=== PATIENT | female | born 1955 | race Hispanic/Latino ===

== ENCOUNTER → 2022-10-30 | Day surgery (SDC) | payer OTHER ==
[2022-10-25 12:05] LABS: BASOPHILS % 0.6 % (0.0-1.0); EOSINOPHILS # (AUTO) 0.1 (0.0-0.4); EOSINOPHILS % 1.7 % (0.0-6.0); HEMATOCRIT 39.5 % (34.2-44.1); HEMOGLOBIN 12.8 g/dL (12.0-16.0); LYMPHOCYTES # (AUTO) 1.2 (1.0-3.2); LYMPHOCYTES % 32.9 % (18.0-39.1); MEAN CORPUSCULAR HGB CONC 32.4 g/dL (31-35); MEAN CORPUSCULAR VOLUME 89.4 fL (81-99); MONOCYTES # (AUTO) 0.3 (0.2-0.8); MONOCYTES % 9.3 % (4.4-11.3); NEUTROPHILS % 55.2 % (38.7-80.0); PLATELET COUNT 100 x10e3/uL (140-360); RED BLOOD COUNT 4.42 x10e6/uL (3.6-5.1); RED CELL DISTRIBUTION WIDTH 19.4 % (11.7-14.4)
[2022-10-25 12:14] LABS: INR 1.11; PARTIAL THROMBOPLASTIN TIME 35.4 seconds (23.8-35.5); PROTHROMBIN TIME 14.8 seconds (11.9-14.5)
[2022-10-25 12:20] LABS: ALBUMIN 3.5 g/dL (3.5-5.0); ANION GAP 9.9 mmol/L (8-16); CALCIUM 9.1 mg/dL (8.4-10.2); CREATININE, SERUM 0.65 mg/dL (0.57-1.11); POTASSIUM 3.9 mmol/L (3.5-5.1)
[~2022-10-30] MED LIST: FAMOTIDINE20 MG PO; FENTANYL CITRATE/PF 100MCG/2 ML INJ ONE; FLOMAX0.4 MG PO; HYOSCYAMINE SULFATE 0.5 MG/ML INJ ONE; LACTATED RINGER'S 1,000 ML ONE; LIDOCAINE HCL 2% LOCAL INJ 5 ML SDV VIAL INJ ONE; MIDAZOLAM HCL 2 MG/2 ML VIAL ONE; PROPOFOL IV EMULSION 10 MG/ML 20 ML VIAL ONE; PROPRANOLOL HCL 10 MG TAB ONE
[2022-10-30 10:45] VITALS: BP 127/77; PULSE 62; RESP 18; O2SAT 96
== END | disposition home or self-care (01) ==
LOC: OR 07:24
PROVIDERS: ATTEND Internal Medicine Gastroenterology
DX: K74.60 Unspecified cirrhosis of liver (principal); D12.2 Benign neoplasm of ascending colon; I85.10 Secondary esophageal varices without bleeding; I86.4 Gastric varices; K76.6 Portal hypertension; K31.89 Other diseases of stomach and duodenum; K63.89 Other specified diseases of intestine; K57.30 Diverticulosis of large intestine without perforation or abscess without bleeding; K64.8 Other hemorrhoids; D64.9 Anemia, unspecified; Z01.810 Encounter for preprocedural cardiovascular examination; Z01.812 Encounter for preprocedural laboratory examination; Z79.899 Other long term (current) drug therapy; Z86.19 Personal history of other infectious and parasitic diseases
CPT/HCPCS: 36415; 43244; 45385; 80053; 85025; 85610; 85730; 87522; 93005; C9113; J1980; J2001; J2250; J2704; J3010; J7121; 43270; 45378

== ENCOUNTER → 2024-02-20 | Day surgery (SDC) | payer MEDICARE, OTHER ==
[2024-02-18 13:42] LABS: EOSINOPHILS # (AUTO) 0.1 (0.0-0.4); EOSINOPHILS % 2.9 % (0.0-6.0); HEMATOCRIT 41.6 % (34.2-44.1); HEMOGLOBIN 13.9 g/dL (12.0-16.0); LYMPHOCYTES # (AUTO) 1.1 (1.0-3.2); LYMPHOCYTES % 34.7 % (18.0-39.1); MEAN CORPUSCULAR HEMOGLOBIN 33.6 pg (28-32); MEAN CORPUSCULAR HGB CONC 33.4 g/dL (31-35); MEAN CORPUSCULAR VOLUME 100.5 fL (81-99); MONOCYTES # (AUTO) 0.4 (0.2-0.8); MONOCYTES % 12.1 % (4.4-11.3); NEUTROPHILS # (AUTO) 1.5 (2.1-6.9); PLATELET COUNT 104 x10e3/uL (140-360); RED BLOOD COUNT 4.14 x10e6/uL (3.6-5.1); RED CELL DISTRIBUTION WIDTH 13.3 % (11.7-14.4); WHITE BLOOD COUNT 3.14 x10e3/uL (4.8-10.8)
[2024-02-18 13:57] LABS: INR 1.06; PROTHROMBIN TIME 14.3 seconds (11.9-14.5)
[2024-02-18 13:58] LABS: PARTIAL THROMBOPLASTIN TIME 29.7 seconds (23.8-35.5)
[2024-02-18 14:04] LABS: ALBUMIN 3.5 g/dL (3.5-5.0); ANION GAP 10.5 mmol/L (8-16); CALCIUM 9.3 mg/dL (8.4-10.2); CREATININE, SERUM 0.7 mg/dL (0.57-1.11); POTASSIUM 4.5 mmol/L (3.5-5.1)
[~2024-02-20] MED LIST changes: -HYOSCYAMINE SULFATE 0.5 MG/ML INJ ONE; -LACTATED RINGER'S 1,000 ML ONE; -LIDOCAINE HCL 2% LOCAL INJ 5 ML SDV VIAL INJ ONE; -MIDAZOLAM HCL 2 MG/2 ML VIAL ONE; +PHYTONADIONE 10MG/ML INJ 20 MG in Sodium Chloride 0.9% 50ML 50 ML IV ONE; -PROPOFOL IV EMULSION 10 MG/ML 20 ML VIAL ONE; +PROPOFOL IV EMULSION 50 ML IV ONE; -PROPRANOLOL HCL 10 MG TAB ONE; +PROPRANOLOL HCL60 M1 PO
[2024-02-20] MEDS: LACTATED RINGER'S 1,000 ML ONE (06:26)
[2024-02-20 09:12] VITALS: TEMP 98
[2024-02-20] MEDS: PHYTONADIONE 10 MG/ML AMP IV ONE (09:22)
[2024-02-20 09:30] VITALS: BP 137/76; PULSE 60; RESP 16; O2SAT 99
== END | disposition home or self-care (01) ==
LOC: OR 06:28
PROVIDERS: ATTEND Internal Medicine Gastroenterology
DX: K74.60 Unspecified cirrhosis of liver (principal); I85.10 Secondary esophageal varices without bleeding; K26.7 Chronic duodenal ulcer without hemorrhage or perforation; K29.80 Duodenitis without bleeding; K44.9 Diaphragmatic hernia without obstruction or gangrene; K76.6 Portal hypertension; K31.89 Other diseases of stomach and duodenum; Z01.810 Encounter for preprocedural cardiovascular examination; Z01.812 Encounter for preprocedural laboratory examination; Z86.16 Personal history of COVID-19
CPT/HCPCS: 36415; 43239; 43244; 80053; 85025; 85610; 85730; 93005; J2470; J2704; J3010; J3430; J7121; 43255

== ENCOUNTER → 2024-05-30 | Day surgery (SDC) | payer MEDICARE ==
[2024-05-27 11:30] LABS: BASOPHILS % 1.2 % (0.0-1.0); EOSINOPHILS # (AUTO) 0.1 (0.0-0.4); EOSINOPHILS % 2.7 % (0.0-6.0); HEMATOCRIT 42.1 % (34.2-44.1); HEMOGLOBIN 14.4 g/dL (12.0-16.0); LYMPHOCYTES # (AUTO) 1.2 (1.0-3.2); LYMPHOCYTES % 34.1 % (18.0-39.1); MEAN CORPUSCULAR HEMOGLOBIN 34.1 pg (28-32); MEAN CORPUSCULAR HGB CONC 34.2 g/dL (31-35); MEAN CORPUSCULAR VOLUME 99.8 fL (81-99); MONOCYTES # (AUTO) 0.3 (0.2-0.8); MONOCYTES % 9.5 % (4.4-11.3); NEUTROPHILS # (AUTO) 1.8 (2.1-6.9); NEUTROPHILS % 52.2 % (38.7-80.0); PLATELET COUNT 114 x10e3/uL (140-360); RED BLOOD COUNT 4.22 x10e6/uL (3.6-5.1); RED CELL DISTRIBUTION WIDTH 13.8 % (11.7-14.4); WHITE BLOOD COUNT 3.37 x10e3/uL (4.8-10.8)
[~2024-05-30] MED LIST changes: +B-121000 MC2; -FENTANYL CITRATE/PF 100MCG/2 ML INJ ONE; +LIDOCAINE HCL 2% LOCAL INJ 5 ML SDV VIAL INJ ONE; +PANTOPRAZOLE SO40 MG PO; -PHYTONADIONE 10MG/ML INJ 20 MG in Sodium Chloride 0.9% 50ML 50 ML IV ONE; +PROPOFOL IV EMULSION 10 MG/ML 20 ML VIAL ONE; -PROPOFOL IV EMULSION 50 ML IV ONE
[2024-05-30] MEDS: LACTATED RINGER'S 1,000 ML ONE (06:54)
[2024-05-30 08:00] VITALS: TEMP 97.7
[2024-05-30 08:30] VITALS: BP 125/79; PULSE 47; RESP 16; O2SAT 100
== END | disposition home or self-care (01) ==
LOC: OR 06:06
PROVIDERS: ATTEND Internal Medicine Gastroenterology
DX: K29.70 Gastritis, unspecified, without bleeding (principal); K76.6 Portal hypertension; K31.89 Other diseases of stomach and duodenum; K21.9 Gastro-esophageal reflux disease without esophagitis; K44.9 Diaphragmatic hernia without obstruction or gangrene; K74.60 Unspecified cirrhosis of liver; D64.9 Anemia, unspecified; E03.9 Hypothyroidism, unspecified; R00.1 Bradycardia, unspecified; Z01.810 Encounter for preprocedural cardiovascular examination; Z01.812 Encounter for preprocedural laboratory examination; Z79.899 Other long term (current) drug therapy
CPT/HCPCS: 36415; 43239; 85025; 93005; J2003; J2470; J2704; J7121